=== PATIENT | female | born 1955 | race Caucasian/White ===

== ENCOUNTER 2017-09-10 11:43 | Emergency (ER) | payer MEDICARE, MEDICAID ==
[2017-09-10 12:29] LABS: #Basophils 0.1 thou/uL (0.0-0.2); #Eosinphils 0.3 thou/uL (0.0-0.7); #Lymphocytes 1.9 thou/uL (1.20-3.40); #Monocytes 0.6 thou/uL (0.11-0.59); #Neutrophils 7.1 thou/uL (1.40-6.50); %Basophils 0.6 % (0.0-1.0); %Eosinophils 2.7 % (0.0-10.0); %Lymphocytes 18.8 % (21.0-51.0); %Monocytes 6.3 % (0.0-10.0); %Neutrophils 71.6 % (42.0-75.0); Mean Corpuscular Hemoglobin 29.7 pg (27.0-31.0); Mean Corpuscular Volume 90.1 fl (81.0-99.0); Mean Platelet Volume 8.5 fL (7.4-10.4); Platelet Count 156 thou/uL (130-400); RBC Distribution Width 11.3 % (11.5-14.5); Red Blood Cell (RBC) Count 4.71 mill/uL (4.20-5.40)
[2017-09-10 12:41] LABS: Anion Gap 15 mmol/L (10-20); BUN (Urea Nitrogen) 16 mg/dL (9.8-20.1); Calc. Creatinine Clearance 0 mL/min (70-130); Carbon Dioxide 24 mmol/L (23-31); Chloride 105 mmol/L (98-107); Estimated GFR-MDRD Greater than 90; Glucose 91 mg/dL (80-115); Potassium 3.6 mmol/L (3.5-5.1); Sodium 140 mmol/L (136-145)
[2017-09-10 12:47] LABS: CKMB 0.5 ng/mL (0-6.6); Troponin I Less than 0.010 ng/mL (< 0.028)
[2017-09-10 13:14] LABS: Bilirubin Negative (Negative); Blood, Urine Small (Negative); Clarity Clear (Clear); Glucose, Urine (Dipstick) 500 mg/dL (Negative); Leukocyte Negative (Negative); Nitrite Negative (Negative); Protein, Urine (Dipstick) Negative (Neg-Trace); Urobilinogen 0.2 mg/dL (0.2-1.0)
[2017-09-10 13:15] LABS: Specific Gravity, Urine 1.006 (1.002-1.036)
[2017-09-10 13:25] LABS: Bacteria/HPF Rare-Few HPF (None Seen); RBC/HPF 0-3 HPF (0-3); WBC/HPF None Seen HPF (0-3)
[2017-09-10] MEDS ORDERED: predniSONE 20 MG TAB ONE (13:56)
--- NOTE | 2017-09-10 14:10 | RAD ---
RADIOGRAPH CHEST 2 VIEWS: Date: 09/10/17. Time: 12:52 p.m. HISTORY: A 62-year-old female with cough COMPARISON: 10/15/15. FINDINGS: Previously demonstrated large left upper lobe mass-like opacity had resolved by the time of the subse quent followup chest CT of 12/09/15, indicating that it was pneumonia rather than neoplastic tumor. O n the current study, there is a 2.5 x 1 cm focal lentiform faint density in the left upper-mid lung z one, just lateral to the upper portion of the left hilum. The rest of the lungs are essentially lexie r. No widening of the mediastinum. Mild ectasia and mild tortuosity of the thoracic aorta. No card iomegaly. No pleural effusion or pneumothorax. IMPRESSION: 1. Small focal lentiform density in the left upper lobe. Etiology is uncertain, but possibilities i nclude subsegmental atelectasis and scar. 2. No other potentially acute findings. DANIEL [] POS: KAYLEE
== END 2017-09-10 14:04 | disposition home or self-care (01) ==
LOC: SCSER 11:43
DX: J18.9 Pneumonia, unspecified organism (principal); E11.9 Type 2 diabetes mellitus without complications; G40.909 Epilepsy, unspecified, not intractable, without status epilepticus; I50.9 Heart failure, unspecified; J45.909 Unspecified asthma, uncomplicated; F41.9 Anxiety disorder, unspecified; F32.9 Major depressive disorder, single episode, unspecified; Z86.73 Personal history of transient ischemic attack (TIA), and cerebral infarction without residual deficits
CPT/HCPCS: 71020; 80048; 81003; 81015; 82553; 83605; 84484; 85025; 87081; 87086; 87430; 93005; J7506

== ENCOUNTER 2018-09-19 14:59 | Outpatient (CLI) | payer MEDICARE, MEDICAID ==
--- NOTE | 2018-09-19 16:42 | BD ---
Exam: DEXA Bone Density 09/19/18 COMPARISON: None. HISTORY: Postmenopausal female undergoing screening for osteoporosis. Lumbar Spine: BMD (g/cm2) L1 0.750 T-Score: -2.2 L2 0.763 T-Score: -2.4 L3 0.699 T-Score: -3.5 L4 0.753 T-Score: -2.8 L1-L4 0.743 T-Score: -2.8 Femoral Neck: 0.533 T-Score: -2.8 Total Femur: 0.603 T-Score: -2.8 FRAX: WHO fracture risk assessment tool is not reported as some T-Scores are at or below -2.5. Impression: There is osteoporosis of the lumbar spine and femoral neck correlating with a high associated risk fo r fracture. POS: KAYLEE
== END 2018-09-19 15:00 | disposition home or self-care (01) ==
LOC: BICMAMMO 14:59
PROVIDERS: ATTEND Family Medicine
DX: Z12.31 Encounter for screening mammogram for malignant neoplasm of breast (principal); Z13.820 Encounter for screening for osteoporosis; Z78.0 Asymptomatic menopausal state; R92.1 Mammographic calcification found on diagnostic imaging of breast; M81.0 Age-related osteoporosis without current pathological fracture; Z80.3 Family history of malignant neoplasm of breast
CPT/HCPCS: 77063; 77067; 77080